=== PATIENT | male | born 1955 | race Caucasian/White ===

== ENCOUNTER 2016-09-27 08:20 | Day surgery (SDC) | payer OTHER ==
--- NOTE | 2016-09-22 07:14 | HISTORY AND PHYSICAL E ---
History and Physical NAME: CHRISTY LENZ : 1955 AGE: 60Y ADMITTED: 09/27/2016 ROOM: CHIEF COMPLAINT: A 60-year-old male referred to us by Jayson for dysphagia, especially after eating steak. Last episode was 2 weeks ago. The patient has noticed no problem with his bowel movements. PAST MEDICAL HISTORY: He did have previous colonoscopy 2014, has history of polyps. MEDICATIONS: 1. Vitamin D. 2. Vitamin E. 3. Multivitamin. 4. Zinc. 5. Motrin. SOCIAL HISTORY: , does not smoke, drinks rarely. FAMILY HISTORY: Father , had diabetes. Mom is alive. REVIEWING OF SYSTEMS: HEAD, EYES, EARS, NOSE, THROAT: The patient has eye glasses, earache right ear. CARDIAC: Negative. RESPIRATORY: Negative. ENDOCRINE: Negative. GASTROINTESTINAL: Dysphagia, especially with solids and steak. ONCOLOGY/HEMATOLOGY: Negative. MUSCULOSKELETAL: Arthritis. PHYSICAL EXAMINATION: VITAL SIGNS: Blood pressure is 140/90, pulse 80, respirations 20, temperature is 98, weight 272. HEAD, EYES, EARS, NOSE, THROAT: Normal. NECK: Supple. CARDIOVASCULAR: Normal. LUNGS: Clear. ABDOMEN: Soft. NEUROLOGIC: Negative. CONCLUSION: Dysphagia. PLAN: Upper endoscopy. The patient needs to be started on PPI and have endoscopy and dilatation. Upper scope scheduled for the 20 of September. DICTATING PHYSICIAN: NORBERTO SWAIN M.D. 1284M 1506 PHY#: [id number] ID: [id number] JOB#: [id number] ACCT: [id number] cc:[facility] NORBERTO SWAIN M.D. >
[~2016-09-27 08:20] MED LIST: EPINEPHRINE INJ 1 MG/10 ML DISP.SYRIN ONE; FENTANYL CITRATE INJ/PF 100 MCG/2 ML AMPUL ONE; FLUMAZENIL INJ 0.5 MG/5 ML VIAL IV ONE; GLYCOPYRROLATE INJ 0.4 MG/2 ML VIAL ONE; NALOXONE HCL INJ/PF 0.4 MG/1 ML SDV ONE; ONDANSETRON HCL INJ/PF 4 MG/2 ML SDV ONE
[2016-09-27] MEDS: MIDAZOLAM 2 MG/2 ML INJ ONE ×3 (09:15→09:22)
[2016-09-27 10:23] LABS: ABSOLUTE EOSINOPHILS # (AUTO) 0.2 10^3/uL (0.0-0.6); ABSOLUTE LYMPHOCYTES (AUTO) 2.2 10^3/uL (0.5-4.7); ABSOLUTE MONOCYTES (AUTO) 0.5 10^3/uL (0.1-1.4); ABSOLUTE NEUT (AUTO) 3.5 10^3/uL (1.7-8.2); BASOPHILS % (AUTO) 0.7 % (0-2); HEMATOCRIT 42.7 % (37.9-51.0); HEMOGLOBIN 14.5 g/dL (13.5-17.0); HGB HCT DIFFERENCE 0.8; LYMPHOCYTES % (AUTO) 34.7 % (13-45); MEAN CORPUSCULAR HEMOGLOBIN 29.6 pg (27.0-33.4); MEAN CORPUSCULAR VOLUME 87 fl (80-97); MONOCYTES % (AUTO) 7.8 % (3-13); RED BLOOD COUNT 4.91 10^6/uL (4.35-5.55); RED CELL DISTRIBUTION WIDTH 13.8 % (11.5-14.0); SEGMENTED NEUTROPHILS % (AUTO) 53.8 % (42-78); WHITE BLOOD COUNT 6.5 10^3/uL (4.0-10.5)
[2016-09-27 10:28] VITALS: BP 128/81
--- NOTE | 2016-09-27 10:34 | DISCHARGE SUMMARY E ---
Discharge Summary NAME: CHRISTY LENZ : 1955 AGE: 60Y ADMITTED: 09/27/2016 DISCHARGED: 09/27/2016 PROCEDURE: EGD and biopsy. HISTORY OF PRESENT ILLNESS: A 60-year-old male with dysphagia. Upper endoscope today shows esophageal ulcer and ring and hiatus hernia with esophagitis, gastritis, duodenitis. Patient underwent upper scope and biopsy. DISCHARGE PLAN: Soft diet. Patient to avoid solid meat. He has only chewed, ground meat or ground turkey. Continue PPI. Protonix 40 b.i.d. Awaiting biopsy results. Patient needs further endoscopy in 3-4 weeks for further evaluation of esophageal ulcer. Will obtain CEA, CBC, and chem profile. Soft food, non-chewable diet, edentulous diet. Patient to continue PPI. Awaiting biopsy results. Further endoscopy in a few weeks. DICTATING PHYSICIAN: NORBERTO SWAIN M.D. 1211M [id number] PHY#: [id number] ID: [id number] JOB#: [id number] ACCT: [id number] cc:[facility], NORBERTO SWAIN M.D. >
[2016-09-27 10:47] LABS: ALANINE AMINOTRANSFERASE 33 U/L (21-72); ALBUMIN 3.8 g/dL (3.5-5.0); ALKALINE PHOSPHATASE 73 U/L (38-126); ANION GAP 9 (5-19); ASPARTATE AMINO TRANSFERASE 20 U/L (17-59); BILIRUBIN,DIRECT 0.2 mg/dL (0.0-0.4); BILIRUBIN,TOTAL 0.6 mg/dL (0.2-1.3); BLOOD UREA NITROGEN 10 mg/dL (7-20); CALCIUM 8.9 mg/dL (8.4-10.2); CARBON DIOXIDE 23 mmol/L (22-30); CHLORIDE 107 mmol/L (98-107); CREATININE RESULT 0.68 mg/dL (0.52-1.25); GLUCOSE 141 mg/dL (75-110); POTASSIUM 4.3 mmol/L (3.6-5.0); SODIUM 139.2 mmol/L (137-145); TOTAL PROTEIN 6.6 g/dL (6.3-8.2)
[2016-09-27 11:16] LABS: CARCINOEMBRYONIC ANTIGEN 2.2 ng/mL (<3.0)
--- NOTE | 2016-09-27 12:43 | OPERATIVE REPORT E ---
Operative Report NAME: CHRISTY LENZ : 1955 AGE: 60Y DATE OF SURGERY: 09/27/2016 ROOM: PREOPERATIVE DIAGNOSIS: Dysphagia. POSTOPERATIVE DIAGNOSIS: 1. Hiatus hernia. 2. Esophageal stricture. 3. Esophageal ulcer. 4. Gastritis. 5. Duodenitis. OPERATION: 1. Esophagoscopy, gastroscopy, duodenoscopy. 2. Multiple distal esophageal biopsies. SURGEON: NORBERTO SWAIN M.D. ANESTHESIA: Versed 3, fentanyl 100. TISSUE REMOVED OR ALTERED: @ PROCEDURE: Baby scope passed under guided vision, no difficulties. Distal esophagus shows large esophageal ulcer. Patient stated that he had eaten recent steak and he was choked. It seems that the steak lasted more than usual in the distal esophagus and he had an ulcer, but I do not see any perforation. Large superficial gastroesophageal junction ulcer about 1 cm benign looking. Gastroscopy visualized thoroughly shows no ulcers, no gastritis. Duodenoscopy mild duodenitis. Esophageal biopsy. The scope withdrawn back to the GE junction half of the esophagus ulcer. The other half where there is no ulcer I can see the ring and multiple biopsies were obtained. DISCHARGE PLAN: Patient needs to stay on soft, non-chewable diet. He is to avoid any steak or turkey or chicken. He is to have ground meat only. No steak, no turkey, no solid meat, just ground chopped food. CONCLUSION: Esophageal stricture with esophageal ulcer. PLAN: Continue PPI. Patient to see us in the office in the next few days. Patient may need further endoscopy three to four weeks for further dilatation and for further evaluation of his esophageal ulcer. DICTATING PHYSICIAN: NORBERTO SWAIN M.D. 1343M 1232 PHY#: [id number] ID: [id number] JOB#: [id number] ACCT: [id number] cc:[facility], NORBERTO SWAIN M.D. >
== END 2016-09-27 10:45 | disposition home or self-care (01) ==
LOC: END 08:20
PROVIDERS: ATTEND Specialist
PROC: 0DB38ZX Excision of Lower Esophagus, Via Natural or Artificial Opening Endoscopic, Diagnostic (ICD-10-PCS; principal; 2016-09-27 09:00)
DX: K44.9 Diaphragmatic hernia without obstruction or gangrene (principal); K29.70 Gastritis, unspecified, without bleeding; K29.80 Duodenitis without bleeding; K22.2 Esophageal obstruction; K22.10 Ulcer of esophagus without bleeding; Z79.1 Long term (current) use of non-steroidal anti-inflammatories (NSAID); M19.90 Unspecified osteoarthritis, unspecified site
CPT/HCPCS: 43239; 36415; 82378; 85025; 80053; 88305 ×2; J2250; J3010; J0171; J2310; J2405; J3490

== ENCOUNTER 2016-11-01 08:22 | Day surgery (SDC) | payer OTHER ==
--- NOTE | 2016-10-31 13:32 | HISTORY AND PHYSICAL E ---
History and Physical NAME: CHRISTY LENZ : 1955 AGE: 60Y ADMITTED: 11/01/2016 ROOM: REASON FOR ADMISSION: Patient presented with history of esophageal ulcers and history of dysphagia. Patient for upper endoscopy. I originally saw the patient for dysphagia, choking on foods, especially steak. SOCIAL HISTORY: . Does not smoke and does not drink. REVIEW OF SYSTEMS: CARDIAC: Negative. RESPIRATORY: Negative. GASTROINTESTINAL: Dysphagia. History of colorectal polyps. MUSCULOSKELETAL: Arthritis. FAMILY HISTORY: His father had diabetes. Mom is alive. PHYSICAL EXAMINATION: VITAL SIGNS: Blood pressure 140/90, pulse 80, respirations 20, temp 98. HEENT: Normal. NECK: Supple. LUNGS: Clear. ABDOMEN: Soft. NEUROLOGIC: Negative. HISTORY: Upper scope on 09/27 shows hiatus hernia, esophageal ulcer, esophageal stricture. Upper endoscopy was done. No dilatation was done secondary to ulcer at the GE junction. Acute ulcers. At this time the patient is being admitted for further endoscopy and consideration for dilatation. MEDICATIONS: 1. Vitamin. 2. Zinc. 3. Occasional Motrin. CONCLUSION: Dysphagia. PLAN: Admit for upper endoscopy on 11/01/2016. DICTATING PHYSICIAN: NORBERTO SWAIN M.D. 1209M 1246 Y#: [id number] ID: [id number] JOB#: [id number] ACCT: [id number] cc:[facility], NORBERTO SWAIN M.D. >
[2016-11-01] MEDS ORDERED: ONDANSETRON HCL INJ/PF 4 MG/2 ML SDV ONE (09:15)
[2016-11-01] MEDS: MIDAZOLAM 2 MG/2 ML INJ ONE ×3 (09:15→09:25)
[2016-11-01] MEDS ORDERED: NALOXONE HCL INJ/PF 0.4 MG/1 ML SDV ONE (09:15)
[2016-11-01] MEDS ORDERED: GLYCOPYRROLATE INJ 0.4 MG/2 ML VIAL ONE (09:15)
[2016-11-01] MEDS ORDERED: MIDAZOLAM 2 MG/2 ML INJ ONE (09:16)
[2016-11-01] MEDS ORDERED: FLUMAZENIL INJ 0.5 MG/5 ML VIAL IV ONE (09:16)
[2016-11-01] MEDS ORDERED: EPINEPHRINE INJ 1 MG/10 ML DISP.SYRIN ONE (09:16)
[2016-11-01] MEDS: FENTANYL CITRATE INJ/PF 100 MCG/2 ML AMPUL ONE ×2 (09:17→09:27)
--- NOTE | 2016-11-01 10:08 | OPERATIVE REPORT E ---
Operative Report NAME: CHRISTY LENZ : 1955 AGE: 60Y DATE OF SURGERY: 11/01/2016 ROOM: PREOPERATIVE DIAGNOSES: 1. Dysphagia. 2. History of esophageal ulcer. 3. History of esophageal stricture. POSTOPERATIVE DIAGNOSES: 1. Esophageal ulcer 80% to 90% healed, still small ulcer, lesion present at the GE junction. 2. Esophageal stricture. SURGEON: NORBERTO SWAIN M.D. ANESTHESIA: Versed 5, fentanyl 200. DESCRIPTION OF PROCEDURE: After adequate sedation, baby scope passed under guided vision, no difficulties. Esophagoscopy junction at 40, lower esophageal stricture. The ulcer, which was seen on previous endoscopy a few weeks ago is 80-90% healed, but there is definite ulcer at the junction. Gastroscopy: Normal. Duodenoscopy: Mild duodenitis. The esophagus was studied again. I did more biopsy from the ring. Clinically, the patient still has occasional dysphagia. PLAN: Soft, low-residue diet. Continue PPI. Awaiting biopsy results. Follow up patient clinically. If has further recurrent dysphagia, further endoscopy indicated with more dilatation and biopsy if needed. Patient tolerated the procedure well and discharged to his room in stable condition. DICTATING PHYSICIAN: NORBERTO SWAIN M.D. [id number] [id number] Y#: [id number] ID: [id number] JOB#: [id number] ACCT: [id number] cc:[facility], NORBERTO SWAIN M.D. >
--- NOTE | 2016-11-01 10:09 | DISCHARGE SUMMARY E ---
Discharge Summary NAME: CHRISTY LENZ : 1955 AGE: 60Y ADMITTED: 11/01/2016 DISCHARGED: 11/01/2016 HISTORY OF PRESENT ILLNESS: The patient is a 60-year-old male who is allergic to PENICILLIN. Underwent upper endoscopy a few weeks ago. There was a large ulcer and the patient did have stricture. The endoscopy today showed the ulcer is 80% healed but definite stricture still present. More biopsies obtained. DISCHARGE PLAN: Soft low residue diet. Continue PPI, Nexium. Hold aspirin and nonsteroidal. Followup office visit in the next few days. Awaiting biopsy results. FINAL DIAGNOSES: 1. Esophageal ulcer 80% healed. 2. Distal esophageal stricture. DICTATING PHYSICIAN: NORBERTO SWAIN M.D. 1211M [id number] [facility]#: [id number] ID: [id number] JOB#: [id number] ACCT: [id number] cc:[facility], NORBERTO SWAIN M.D. >
[2016-11-01 10:45] LABS: ABSOLUTE EOSINOPHILS # (AUTO) 0.2 10^3/uL (0.0-0.6); ABSOLUTE MONOCYTES (AUTO) 0.5 10^3/uL (0.1-1.4); BASOPHILS % (AUTO) 0.7 % (0-2); EOSINOPHILS % (AUTO) 3.7 % (0-6); HEMATOCRIT 42.7 % (37.9-51.0); HEMOGLOBIN 14.3 g/dL (13.5-17.0); HGB HCT DIFFERENCE 0.2; LYMPHOCYTES % (AUTO) 35.2 % (13-45); MEAN CORPUSCULAR HEMOGLOBIN 29.7 pg (27.0-33.4); MEAN CORPUSCULAR HGB CONC 33.5 g/dL (32.0-36.0); MEAN CORPUSCULAR VOLUME 89 fl (80-97); MONOCYTES % (AUTO) 8.4 % (3-13); RED BLOOD COUNT 4.82 10^6/uL (4.35-5.55); RED CELL DISTRIBUTION WIDTH 13.8 % (11.5-14.0); WHITE BLOOD COUNT 5.7 10^3/uL (4.0-10.5)
[2016-11-01 11:02] VITALS: BP 114/82
== END 2016-11-01 10:45 | disposition home or self-care (01) ==
LOC: END 08:22
PROVIDERS: ATTEND Specialist
PROC: 0DB38ZX Excision of Lower Esophagus, Via Natural or Artificial Opening Endoscopic, Diagnostic (ICD-10-PCS; principal; 2016-11-01 09:00)
DX: K22.10 Ulcer of esophagus without bleeding (principal); K22.2 Esophageal obstruction; K29.80 Duodenitis without bleeding; M19.90 Unspecified osteoarthritis, unspecified site; Z88.0 Allergy status to penicillin; Z86.010 Personal history of colon polyps; Z79.1 Long term (current) use of non-steroidal anti-inflammatories (NSAID)
CPT/HCPCS: 43239; 36415; 85025; 88305 ×2; J2250; J3010; J2405; J0171; J2310; J3490